=== PATIENT | male | born 2000 | race Caucasian/White ===

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

== ENCOUNTER 2022-10-01 14:20 | Outpatient (RCR) | payer OTHER, SELFPAY ==
--- NOTE | 2022-10-01 15:47 | PTOPEVAL1 ---
Assessment and note entered by Imelda Elmore, PT, DPT Evaluation Information Assessment Status Evaluation Diagnosis R shoulder pain Onset ~1 month Subjective Information Pt states about a month ago he was rock climbing and his shoulder began to hurt. He states his shoulder has been flocculating been a strong twinge of pain and other intermittent deep pains. He reports pain only when raising his arm over his head. He states he has not returned to rock climbing. He states a couple of weeks ago his shoulder would pop every time he moved it but it does not now. Reported Pain Level Pain Score 0: Self Report Assessment PT Clinical Summary Jim presents to therapy today for his initial evaluation with a diagnosis of R arm pain. Today he demonstrates active shoulder motion that is equal bilaterally. He demonstrates strength on the R that is 90% of the strength of his L shoulder, however resistance on the R shoulder increases pain. He has a positive Wilhelm's Loy test on the R. He demonstrates significant scapular winging in weight bearing positions. Today he was instructed in a HEP with a high focus on scapular strength and stability with dynamic movements. He will complete this IND and follow up in a month to check in with how the shoulder is doing. If he is doing well in a month he will be discharged at that time. Plan of Care Interventions Neuro Re-education,Patient/Caregiver Education, Therapeutic Activities,Therapeutic Exercise PT Services Indicated Yes Treatment Frequency and follow up in a month if needed Duration These treatments will address the objective and functional deficits as defined above. The patient will be advanced safely and appropriately in order for the patient to progress towards his/her prior level of function. Additional exercises will be introduced and as well as a comprehensive home exercise program upon discharge, if needed, ?to ensure carryover of functional gains achieved in the clinic. This treatment plan has been reviewed and agreement upon by the patient.
--- NOTE | 2022-11-10 12:51 | PTOPDC ---
Assessment and note entered by Imelda Elmore, PT, DPT Evaluation Information Assessment Status Discharge - Pt Not Present Diagnosis R shoulder pain Onset ~1 month Subjective Information Called and spoke with patient. He states his shoulder is doing much better with the exercises. He states he can be discharged at this time. Assessment PT Clinical Summary Jim completed his initial evaluation on 10/01/22 and has been performing a HEP IND. He will be discharged from skilled services at this time. If he needs to return at a later date he will need a new order.
== END 2022-11-10 13:22 | disposition home or self-care (01) ==
LOC: ANHGOSHPT 14:20
PROVIDERS: PCP Internal Medicine; Visit Provider Internal Medicine
DX: M79.601 Pain in right arm (principal)
CPT/HCPCS: 97112; 97161